=== PATIENT | male | born 1955 | race Caucasian/White ===

== ENCOUNTER → 2023-12-01 | Outpatient (CLI) | payer MEDICARE ==
[2004-10-18 11:40] VITALS: TEMP 98.7
[~2023-12-01] MED LIST: CEPHALEXIN500 M1 PO; NO HOME MEDICATIONS; Triamcinolone 40 MG/ML 1 ML VIAL IJ SCH
== END ==
LOC: COL.RAD 06:39
DX: G57.02 Lesion of sciatic nerve, left lower limb (principal)
CPT/HCPCS: J0665; J3301